=== PATIENT | female | born 1950 | race Caucasian/White ===

== ENCOUNTER 2021-11-25 09:42 | Emergency (ER) | payer MEDICARE, OTHER ==
[~2021-11-25] VITALS: Ht 162.6 cm; Wt 84.1 kg
[~2021-11-25 09:42] MED LIST: HYDR-643 PO; LOSA25TA13 PO; PEPC1TAB5 PO; PRED20TA PO; RANI150T PO; RANI1SYP PO; SYNT75TA PO
[2021-11-25] MEDS ORDERED: TRANEXAMIC ACID INJection 1,000 MG in NS 100 ML IV ONE (14:45)
[2021-11-25 14:47] LABS: BASO % 0.3 % (0.0-1.0); HEMATOCRIT 41.6 % (36.0-47.0); HEMOGLOBIN 14.1 g/dl (12.0-15.5); LYMPH % 7.5 % (24.0-44.0); MEAN CORPUSCULAR HEMOGLOBIN 32.7 pg (27.0-33.0); MEAN CORPUSCULAR HGB CONC 33.9 g/dl (32.0-36.5); MEAN CORPUSCULAR VOLUME 96.5 fl (80.0-96.0); MONO % 7.2 % (2.0-8.0); NEUTROPHILS % 84.3 % (36.0-66.0); PLATELET COUNT, AUTOMATED 193 10^3/uL (150-450); RED BLOOD COUNT 4.31 10^6/uL (4.00-5.40); WHITE BLOOD COUNT 11.7 10^3/uL (4.0-10.0)
[2021-11-25 14:48] LABS: LYMPH # 0.9 10^3/uL (1.5-5.0); MONO # 0.9 10^3/uL (0.0-0.8); NEUTROPHILS # 9.9 10^3/uL (1.5-8.5)
[2021-11-25 15:19] LABS: INR 0.93; PARTIAL THROMBOPLASTIN TIME 30.5 SECONDS (25.9-37.0); PROTHROMBIN TIME 12.9 SECONDS (12.7-14.5)
[2021-11-25 15:20] LABS: ALBUMIN 3.8 GM/DL (3.2-5.2); BILIRUBIN,DIRECT 0.2 MG/DL (0.0-0.2); BILIRUBIN,TOTAL 0.8 MG/DL (0.2-1.0); TOTAL PROTEIN 6.8 GM/DL (6.4-8.2)
[2021-11-25 15:50] VITALS: BP 134/65
[2021-11-25] MEDS ORDERED: ACETAMINOPHEN 325 MG TAB PO ONE (15:55)
[2021-11-25 16:05] VITALS: BP 141/69
[2021-11-25 16:50] VITALS: BP 127/60
[2021-11-25 16:52] LABS: RSV AMPLIFICATION NEGATIVE (NEGATIVE)
[2021-11-25 17:13] VITALS: BP 123/60
[2021-11-25 17:23] VITALS: BP 123/60
== END 2021-11-25 20:38 | disposition home or self-care (01) ==
LOC: M ED 09:42
DX: S00.10XA Contusion of unspecified eyelid and periocular area, initial encounter (principal); S60.221A Contusion of right hand, initial encounter; S80.02XA Contusion of left knee, initial encounter; S40.012A Contusion of left shoulder, initial encounter; D68.9 Coagulation defect, unspecified; M79.81 Nontraumatic hematoma of soft tissue; I10 Essential (primary) hypertension; K21.9 Gastro-esophageal reflux disease without esophagitis; Z88.6 Allergy status to analgesic agent; Z79.899 Other long term (current) drug therapy; Y92.9 Unspecified place or not applicable; Y93.9 Activity, unspecified
CPT/HCPCS: 36430; 70450; 70486; 72125; 73090; 73110; 73130; 80047; 80076; 83690; 85025; 85610; 85730; 86850; 86900; 86901; 87631; 96365; 99285; P9034

== ENCOUNTER → 2022-11-23 | Outpatient (CLI) | payer MEDICARE | LOC: M WUC 12:26 | PROVIDERS: ATTEND Registered Nurse | DX: M25.551 Pain in right hip (principal); R53.83 Other fatigue ==